=== PATIENT | male | born 1985 | race Caucasian/White ===

== ENCOUNTER → 2019-11-27 07:02 | Outpatient (CLI) | payer OTHER, SELFPAY ==
--- NOTE | 2019-11-27 | DI.ECHO.S_ITS ---
[place] [facility] +---------+ : : [address] : : : : [id number] : : : : Phone: [phone] Echocardiogram Report + + :Name: ANA MARÍA HOLDEN Study Date: 11/27/2019 Height: 71 in : :[facility] Weight: 161 lb : : Gender: Male BSA: 1.9 m2 : :: 1985 Age: 34 yrs BP: 108/74 mmHg: :Reason For Study: Aortic insufficiency : :Ordering Physician: Melissa Soliman : :Grace Performed By: Jen Mustafa : :Referring: MELISSA EDWARDS : + + Interpretation Summary 1) Upper normal left ventricular size with normal thickness, and normal systolic function (EF 55-60%). 2) Normal right ventricular size and function. There is a pacemaker lead in the right ventricle. 3) The aortic valve is bicuspid. 4) There is mild aortic stenosis. 5) There is mild-moderate aortic regurgitation, directed towards the anterior leaflet of the mitral valves. 6) The aortic root is mildly dilated at 4.1cm. 7) No prior Echo available for comparison. Procedure: A two-dimensional transthoracic echocardiogram with color flow and Doppler was performed. The study quality was technically adequate. There is no prior echocardiogram noted for this patient. The patient was in sinus bradycardia with heart rates between 51-72 bpm during the exam. Left Ventricle: There is normal left ventricular wall thickness. Left ventricular size is at the upper limits of normal. The ejection fraction is estimated to be 55-60%. There is a slight dyssynchronous contraction pattern due to the paced rhythm. Right Ventricle: There is a pacemaker lead in the right ventricle. The right ventricle is grossly normal size. The right ventricular systolic function is normal. Atria: The left atrium is mildly dilated. There is a catheter/pacemaker lead seen in the right atrium. The right atrium is borderline dilated. There is no Doppler evidence for an interatrial shunt. 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 Mitral Valve: The mitral valve is normal in structure and function. There is trace mitral regurgitation. Aortic Valve: The aortic valve is bicuspid. There is moderate aortic valve sclerosis. There is mild aortic stenosis. There is mild to moderate aortic regurgitation. There is an eccentric jet of aortic insufficiency directed against the anterior mitral leaflet. Tricuspid Valve: The tricuspid valve is normal in structure and function. There is mild tricuspid regurgitation. The right ventricular systolic pressure is estimated to be at least 20 mmHg based on an estimated right atrial pressure of 3 mm Hg. Pulmonic Valve: The pulmonic valve is normal in structure and function. There is mild pulmonic regurgitation. Great Vessels: The aortic root is mildly dilated. The ascending aorta is at the upper limits of normal in size. The IVC is of normal diameter and collapses greater than 50% with a sniff. This suggests a low right atrial pressure of 3 mm Hg. Pericardium/ Pleura There is no pericardial effusion. There is no pleural effusion. MMode/2D Measurements & Calculations LVIDd: 5.9 cm Ao root diam: 4.1 cm LVIDs: 4.3 cm asc Aorta Diam: 3.6 cm FS: 27.5 % Ao Arch Diam (Prox Trans): 2.5 cm EPSS: 1.3 cm IVSd: 0.89 cm LVPWd: 0.96 cm LV cheng. diameter/BSA (cm/m^2): 3.1 LV sys. diameter/BSA (cm/m^2): 2.2 LA A2 area: 22.1 cm2 RA long axis: 5.3 cm LA A4 area: 20.3 cm2 RA area: 18.3 cm2 LA length (vol): 5.0 cm RA vol: 53.4 ml LA vol: 76.0 ml RA : 27.7 ml/m2 LA vol index: 39.5 ml/m2 IVC diam: 2.0 cm RVD1 (basal): 3.9 cm TAPSE: 3.1 cm Doppler Measurements & Calculations Ao V2 max: 224.1 cm/sec LVOT Max Ricky: 84.2 cm/sec Ao V2 mean: 161.3 cm/sec LV V1 max P.8 mmHg Ao max P.1 mmHg LV V1 VTI: 21.6 cm Ao mean P.8 mmHg sev ratio: 0.41 Ao V2 VTI: 52.8 cm MV E max ricky: 83.7 cm/sec TR max ricky: 206.9 cm/sec MV A max ricky: 46.5 cm/sec TR max P.1 mmHg MV E/A: 1.8 PA V2 max: 70.1 cm/sec Med Peak E' Ricky: 7.2 cm/sec PA V2 mean: 48.0 cm/sec E/E' med: 11.7 PA mean P.1 mmHg Lat Peak E' Ricky: 12.4 cm/sec PA pr(Accel): 15.2 mmHg E/E' lat: 6.7 PA Accel Time: 0.15 sec E/e' average: 9.2 MV dec time: 0.15 sec Reading Physician:09:27 AM
== END ==
PROVIDERS: Referring Provider Internal Medicine Cardiovascular Disease; Visit Provider Internal Medicine Cardiovascular Disease
DX: I08.2 Rheumatic disorders of both aortic and tricuspid valves (principal); I77.810 Thoracic aortic ectasia; Z95.0 Presence of cardiac pacemaker
CPT/HCPCS: 93306

== ENCOUNTER 2020-07-12 12:56 | Emergency (ER) | payer OTHER, SELFPAY ==
[2020-07-12] VITALS (7 sets, daily range): BP systolic 106–129; BP diastolic 56–75; PULSE 51–94; RESP 18–23; O2SAT 95–99; BMI 22.3
--- NOTE | 2020-07-12 13:08 | DI.RAD.S_ITS ---
PROCEDURE: XR ACUTE ABDOMEN SERIES INDICATIONS: abd pain, vomiting TECHNIQUE: One view chest and two views of the abdomen were acquired. COMPARISON: None. FINDINGS: Clothing artifact is seen. Surgical changes and devices: A pacer device is seen. Chest: Lungs are clear. Heart size is normal. No pleural effusions. No pneumoperitoneum. Abdomen: Bowel gas pattern is normal. No suspicious calcifications. Visualized solid organ contours appear normal. A moderate amount of stool is seen within the colon. Bones: No suspicious bony lesions. IMPRESSION: A nonobstructive bowel gas pattern is seen. If clinically appropriate, please consider a repeat plain film study or a dedicated CT of the abdomen and pelvis, if the patient's symptoms persist or worsen. There is a moderate amount of stool seen within the colon. Please correlate with an underlying history of constipation. Pacer device noted. Dictated by: Tito Junior M.D. on 07/12/2020 at 12:24 Approved by: Tito Junior M.D. on 07/12/2020 at 12:25
--- NOTE | 2020-07-12 13:14 | ED_ITS ---
HPI - Nausea/Vomiting/Diarrhea <KONSTANTIN DickensBC - Last Filed: 07/12/20 17:19> General Chief complaint: Nausea/Vomiting/Diarrhea Stated complaint: Possible Food Poisoning Time Seen by Provider: 07/12/20 13:00 Source: patient Mode of arrival: Ambulatory Limitations: no limitations History of Present Illness HPI Narrative: The patient is a 35-year-old male nonsmoker with history of of p acemaker, SVT who presents with a chief complaint of nausea and vomiting since last night. He has on a road biking anniversary trip with his , was eating out in [place], and both he and his had severe nausea and vomiting. He states he had fish and chips, but she has plate half a bottle of wine and some she hand pain. He has vomited at least 4 times, his feels improved it is able to keep down oral intake, but he is unable to do so at this time. He took his road bike on the [place] and bike to the hospital, presenting with a chief complaint of likely food poisoning. He denies any fevers muscle aches or chills. He denies any constipation or diarrhea, though feels he might feel better if that were to happen. He has not taken anything to feel better. He states he vomited up a piece of donut this morning. Denies any major medical history other than his history of SVT, which resulted in multiple ablations of medications sick sinus syndrome and then a pacemaker implantation. Related Data Previous Rx's Medication Instructions Recorded ondansetron 4 mg PO Q6H PRN #14 tab 07/12/20 Allergies Allergy/AdvReac Type Severity Reaction Status Date / Time No Known Drug Allergies Allergy Verified 07/12/20 13:13 Review of Systems <TRU Dickens - Last Filed: 07/12/20 17:19> Review of Systems Narrative: GENERAL: Denies chills, fatigue, malaise, fever, sweats. HEENT: Denies sinus pain, ear pain, sore throat, difficulty swallowing, dizziness. RESPIRATORY: Denies dyspnea, cough, wheezing, hemoptysis, sputum. CARDIOVASCULAR: Denies chest pain, palpitations, orthopnea, edema, GASTROINTESTINAL: See HPI : Denies dysuria, frequency, incontinence, hematuria, urinary retention. MUSCULOSKELETAL: denies weakness, joint pain, or bony pain SKIN: Denies rash, skin lesions, or other NEUROLOGIC: Denies weakness, headache, numbness, change in speech, confusion, seizures, incoordination. PSYCHIATRIC: No concerning psychosocial issues. 12 point review of systems is negative except for those stated above Patient History <TRU Dickens - Last Filed: 07/12/20 17:19> Medical History (Updated 07/12/20 @ 16:35 by TRU Dickens) Pacemaker (Acute) Social History Smoking Status: Never smoker Smoking Status: Never smoker alcohol intake frequency: 0-2 drinks per day Substance Use Type: does not use Exam <TRU Dickens - Last Filed: 07/12/20 17:19> Narrative Exam Narrative: GENERAL: This is a well-nourished, well-developed patient, in no acute distress HEAD: Atraumatic. Normocephalic. No temporal or scalp tenderness. EYES: Pupils equal round and reactive. Extraocular motions intact. No scleral icterus. No injection or drainage. ENT: Nose without bleeding, purulent drainage or septal hematoma. Throat without erythema, tonsillar hypertrophy or exudate. Uvula midline. Airway patent. NECK: Trachea midline. No JVD or lymphadenopathy. Supple, nontender, no meningeal signs. CARDIOVASCULAR: Regular rate and rhythm RESPIRATORY: Clear to auscultation. Breath sounds equal bilaterally. No wheezes, rales, or rhonchi. Cough. No increased respiratory effort. No accessory muscle use. GASTROINTESTINAL: Abdomen soft, diffusely tender to palpation, nondistended. No hepato-splenomegaly, or palpable masses. No guarding. EXTREMITIES: No clubbing, cyanosis, or edema. No joint tenderness, effusion, or edema noted. BACK: Nontender without deformity or crepitance. No flank tenderness. NEURO: AOx3. SKIN: No rash or erythema on visible skin Initial Vital Signs Initial Vital Signs: Vital Signs Pulse Rate 94 H 07/12/20 13:08 Respiratory Rate 18 07/12/20 13:08 Blood Pressure 129/75 07/12/20 13:08 Pulse Oximetry 96 07/12/20 13:08 <Radha Saha DO - Last Filed: 07/17/20 07:42> Initial Vital Signs Initial Vital Signs: Vital Signs Pulse Rate 94 H 10/18/20 13:08 Respiratory Rate 18 07/12/20 13:08 Blood Pressure 129/75 07/12/20 13:08 Pulse Oximetry 96 07/12/20 13:08 Scores <TRU Dickens - Last Filed: 07/12/20 17:19> GCS [place] coma scale eye opening: Spontaneous [place] coma scale verbal response: Orientated [place] coma scale motor response: Obey commands [place] coma scale total score: 15 Course <TRU Dickens - Last Filed: 07/12/20 17:19> Orders Ordered: Discontinued Medications Sodium Chloride (Normal Saline 0.9%) 1,000 mls @ 1,000 mls/hr IV BOLUS ONE Stop: 07/12/20 14:07 Last Infusion: 07/12/20 14:25 Dose: 0 mls/hr Documented by: Admin: 07/12/20 13:27 Dose: 1,000 mls/hr Documented by: JOHANNA Sodium Chloride (Normal Saline 0.9%) 1,000 mls @ 1,000 mls/hr IV BOLUS ONE Stop: 07/12/20 15:24 Last Infusion: 07/12/20 15:30 Dose: 1,000 mls/hr Documented by: Admin: 07/12/20 14:29 Dose: 1,000 mls/hr Documented by: JOHANNA Magnesium Oxide (Mag Ox) 400 mg PO NOW ONE Stop: 07/12/20 16:34 Last Admin: 07/12/20 16:47 Dose: 400 mg Documented by: EMANI Ondansetron HCl (Zofran) 4 mg IV NOW ONE Stop: 07/12/20 13:09 Last Admin: 07/12/20 13:27 Dose: 4 mg Documented by: JOHANNA Ondansetron HCl (Zofran) 4 mg IV NOW ONE Stop: 07/12/20 15:42 Last Admin: 07/12/20 15:47 Dose: 4 mg Documented by: EMANI Ondansetron HCl (Zofran Odt Prepack) 1 bottle MISC SEEINSTR ONE Stop: 07/12/20 16:49 Last Admin: 07/12/20 16:57 Dose: 1 bottle Documented by: EMANI Vital Signs Vital signs: Vital Signs - 8 hr 07/12/20 13:08 07/12/20 13:30 07/12/20 14:00 Pulse Rate 94 H 62 51 L Respiratory Rate 18 21 23 Blood Pressure 129/75 117/60 106/56 L Pulse Oximetry 96 95 98 07/12/20 14:27 07/12/20 14:30 07/12/20 15:00 Pulse Rate 66 64 Respiratory Rate 18 Blood Pressure 112/59 L 113/56 L Pulse Oximetry 99 99 07/12/20 16:57 Pulse Rate 71 Respiratory Rate 18 Blood Pressure 108/60 Pulse Oximetry 99 <Radha Saha, DO - Last Filed: 07/17/20 07:42> Orders Ordered: Discontinued Medications Sodium Chloride (Normal Saline 0.9%) 1,000 mls @ 1,000 mls/hr IV BOLUS ONE Stop: 07/12/20 14:07 Last Infusion: 07/12/20 14:25 Dose: 0 mls/hr Documented by: Admin: 07/12/20 13:27 Dose: 1,000 mls/hr Documented by: JOHANNA Sodium Chloride (Normal Saline 0.9%) 1,000 mls @ 1,000 mls/hr IV BOLUS ONE Stop: 07/12/20 15:24 Last Infusion: 07/12/20 15:30 Dose: 1,000 mls/hr Documented by: Admin: 07/12/20 14:29 Dose: 1,000 mls/hr Documented by: JOHANNA Magnesium Oxide (Mag Ox) 400 mg PO NOW ONE Stop: 07/12/20 16:34 Last Admin: 07/12/20 16:47 Dose: 400 mg Documented by: EMANI Ondansetron HCl (Zofran) 4 mg IV NOW ONE Stop: 07/12/20 13:09 Last Admin: 07/12/20 13:27 Dose: 4 mg Documented by: JOHANNA Ondansetron HCl (Zofran) 4 mg IV NOW ONE Stop: 07/12/20 15:42 Last Admin: 07/12/20 15:47 Dose: 4 mg Documented by: EMANI Ondansetron HCl (Zofran Odt Prepack) 1 bottle MISC SEEINSTR ONE Stop: 07/12/20 16:49 Last Admin: 07/12/20 16:57 Dose: 1 bottle Documented by: EMANI Vital Signs Vital signs: Vital Signs - 8 hr 07/12/20 13:08 07/12/20 13:30 07/12/20 14:00 Pulse Rate 94 H 62 51 L Respiratory Rate 18 21 23 Blood Pressure 129/75 117/60 106/56 L Pulse Oximetry 96 95 98 07/12/20 14:27 07/12/20 14:30 07/12/20 15:00 Pulse Rate 66 64 Respiratory Rate 18 Blood Pressure 112/59 L 113/56 L Pulse Oximetry 99 99 07/12/20 16:57 Pulse Rate 71 Respiratory Rate 18 Blood Pressure 108/60 Pulse Oximetry 99 MDM - Nausea/Vomiting/Diarrhea <MERRY Dickens- - Last Filed: 07/12/20 17:19> Lab Data Attestation: I reviewed the patient's lab results. Result diagrams: 07/12/20 13:28 07/12/20 13:28 Labs: Lab Results 07/12/20 07/12/20 Range/Units 13:28 13:28 WBC 10.1 (4.5-11.0) X10^3/uL RBC 4.79 (4.5-5.9) X10^6/uL Hgb 15.2 (13.5-17.5) g/dL Hct 43.5 (41-53) % MCV 90.9 (80-100) fL MCH 31.8 (26-34) PG MCHC 35.0 (30-36) % RDW 13.1 (11.6-14.8) % Plt Count 139 L (150-400) X10^3/uL Neut % (Auto) 89.6 H (50-75) % Lymph % (Auto) 4.1 L (25-40) % [place] % (Auto) 6.0 (3-14) % Eos % (Auto) 0.1 L (2-4) % Baso % (Auto) 0.2 (0-2) % Neut # (Auto) 9100 H (4807-1673) /uL Lymph # (Auto) 400 L (8212-6124) /uL [place] # (Auto) 600 (0-900) /uL Eos # (Auto) 0 (0-450) /uL Baso # (Auto) 0 (0-100) /uL Sodium 138 (137-145) mmol/L Potassium 4.5 (3.4-5.1) mmol/L Chloride 104 (98-107) mmol/L Carbon Dioxide 24 (22-32) mmol/L BUN 20 (9-20) mg/dL Creatinine 0.83 (0.66-1.25) mg/dL Estimated GFR > 60.0 (>60) mL/min BUN/Creatinine Ratio 24.1 H (6-22) Glucose 121 H (70-100) mg/dL Calcium 9.1 (8.4-10.2) mg/dL Magnesium 1.5 L (1.6-2.3) mg/dL Total Bilirubin 1.1 (0.2-1.3) mg/dL AST 36 (17-59) IU/L ALT 17 (<50) IU/L Alkaline Phosphatase 62 (38-126) U/L Total Protein 8.5 H (6.3-8.2) g/dL Albumin 4.6 (3.5-5.0) g/dL Globulin 3.9 (1.7-4.1) g/dL Albumin/Globulin Ratio 1.2 (1.0-2.8) Amylase 110 (30-110) U/L Lipase 147 (23-300) U/L Urine Dip Bedside Urine Glucose Negative Bedside Urine Bilirubin + 1 Bedside Urine Ketone + 15 Urine Specific [place] 1.030 Bedside Urine Occult Blood - Negative Bedside Urine pH 5.5 Bedside Urine Protein - Negative Bedside Urine Urobilinogen - Negative Bedside Urine Nitrite - Negative Bedside Urine Leukocytes - Negative Esterase Imaging Data Abdominal x-ray: Radiologist's Impression: [address] [place] [id number] XRay Report Signed Patient: Jose Gonzalez JMR#: [id number] : 1985Acct:[id number] Age/Sex: 35 / MDate of Service: 07/12/20 Loc: ED Accession Number: [id number] Procedure: XR acute abdomen series Ordering Provider: Michelle Clemens-BC PROCEDURE: XR ACUTE ABDOMEN SERIES INDICATIONS: abd pain, vomiting TECHNIQUE: One view chest and two views of the abdomen were acquired. COMPARISON: None. FINDINGS: Clothing artifact is seen. Surgical changes and devices: A pacer device is seen. Chest: Lungs are clear. Heart size is normal. No pleural effusions. No pneumoperitoneum. Abdomen: Bowel gas pattern is normal. No suspicious calcifications. Visualized solid organ contours appear normal. A moderate amount of stool is seen within the colon. Bones: No suspicious bony lesions. IMPRESSION: A nonobstructive bowel gas pattern is seen. If clinically appropriate, please consider a repeat plain film study or a dedicated CT of the abdomen and pelvis, if the patient's symptoms persist or worsen. There is a moderate amount of stool seen within the colon. Please correlate with an underlying history of constipation. Pacer device noted. Dictated by: Tito Junior M.D. on 07/12/2020 at 12:24 Approved by: Tito Junior M.D. on 07/12/2020 at 12:25 MDM Narrative Medical decision making narrative: The patient is a 35-year-old male who presents with a chief complaint of nausea and vomiting since eating dinner last night. He appears overall well and nontoxic, lab work is reassuring with no leukocytosis. He feels improved after IV fluids as well as Zofran is requesting to go home. I discussed at length that we did not do further advanced imaging and he is okay with that at this point time. Is able to pass a p.o. trial. I discussed at length strict return precautions for abdominal pain with fever any acute concerns etcetera. We discussed that we did not do CT etcetera to rule out appendicitis or other acute etiology however this is thought to be less likely as the patient's came down with similar symptoms immediately after eating as well. Encouraged follow-up with primary care provider, sent in a prescription of Zofran provided a work note. Patient had no episodes of vomiting throughout his emergency department stay. Patient have no questions or concerns upon discharge and state understanding of return precautions as well as follow-up care. <Radha Saha, - Last Filed: 07/17/20 07:42> Lab Data Labs: Lab Results 07/12/20 07/12/20 Range/Units 13:28 13:28 WBC 10.1 (4.5-11.0) X10^3/uL RBC 4.79 (4.5-5.9) X10^6/uL Hgb 15.2 (13.5-17.5) g/dL Hct 43.5 (41-53) % MCV 90.9 (80-100) fL MCH 31.8 (26-34) PG MCHC 35.0 (30-36) % RDW 13.1 (11.6-14.8) % Plt Count 139 L (150-400) X10^3/uL Neut % (Auto) 89.6 H (50-75) % Lymph % (Auto) 4.1 L (25-40) % [place] % (Auto) 6.0 (3-14) % Eos % (Auto) 0.1 L (2-4) % Baso % (Auto) 0.2 (0-2) % Neut # (Auto) 9100 H (6321-8742) /uL Lymph # (Auto) 400 L (7278-9008) /uL [place] # (Auto) 600 (0-900) /uL Eos # (Auto) 0 (0-450) /uL Baso # (Auto) 0 (0-100) /uL Sodium 138 (137-145) mmol/L Potassium 4.5 (3.4-5.1) mmol/L Chloride 104 (98-107) mmol/L Carbon Dioxide 24 (22-32) mmol/L BUN 20 (9-20) mg/dL Creatinine 0.83 (0.66-1.25) mg/dL Estimated GFR > 60.0 (>60) mL/min BUN/Creatinine Ratio 24.1 H (6-22) Glucose 121 H (70-100) mg/dL Calcium 9.1 (8.4-10.2) mg/dL Magnesium 1.5 L (1.6-2.3) mg/dL Total Bilirubin 1.1 (0.2-1.3) mg/dL AST 36 (17-59) IU/L ALT 17 (<50) IU/L Alkaline Phosphatase 62 (38-126) U/L Total Protein 8.5 H (6.3-8.2) g/dL Albumin 4.6 (3.5-5.0) g/dL Globulin 3.9 (1.7-4.1) g/dL Albumin/Globulin Ratio 1.2 (1.0-2.8) Amylase 110 (30-110) U/L Lipase 147 (23-300) U/L Urine Dip Bedside Urine Glucose Negative Bedside Urine Bilirubin + 1 Bedside Urine Ketone + 15 Urine Specific [place] 1.030 Bedside Urine Occult Blood - Negative Bedside Urine pH 5.5 Bedside Urine Protein - Negative Bedside Urine Urobilinogen - Negative Bedside Urine Nitrite - Negative Bedside Urine Leukocytes - Negative Esterase Discharge Plan Departure Patient Disposition: Home Clinical Impression: Hypomagnesemia, Dehydration Nausea & vomiting Qualifiers: Vomiting type: unspecified Vomiting Intractability: non-intractable Qualified Code(s): R11.2 - Nausea with vomiting, unspecified Abdominal pain Qualifiers: Abdominal location: generalized Qualified Code(s): R10.84 - Generalized abdominal pain Discharge Date/Time: 07/12/20 16:58 Instructions: DI for Dehydration -- Adult, DI for Abdominal Pain-Adult, DI for Nausea -- Adult, DI for Vomiting -- Adult Activity Restrictions/Additional Instructions: Thank you for trusting us with your care today Discussed, please follow-up with primary care provider in the next few days. I sent a prescription of Zofran to [email or web address] in [place]. Please be aware that this can be constipating. Your magnesium is slightly low today. We have given you a pill to help replace this. It is likely due to your vomiting. Please follow-up with primary care provider at the next few days for re-evaluation regarding this. As discussed, given that you had similar symptoms after eating suspect food, you any do not have any fever or cough this is not likely to be coronavirus at this point time. However we did not test you for coronavirus today. As discussed, please start with a light diet pushing fluids. Please avoid deep fried foods, spicy foods fatty foods etcetera as these can all be irritating to your stomach. As discussed, please come back to the emergency department for any acute concerns including abdominal pain with fever etcetera. Prescriptions: New ondansetron 4 mg tablet,disintegrating 4 mg PO Q6H PRN (Reason: nausea and vomiting) Qty: 14 RF: 0 Referrals: [facility] [Provider Group] Blake Lange MD [Primary Care Provider] - Stand Alone Forms: Work Release Note <Radah Saha DO - Last Filed: 07/17/20 07:42> Cosign ED Attending Cos[place] Attestation: I was immediately available in the department for consultation. Documentation has been reviewed. I agree with assessment and plan.
[2020-07-12] MEDS: SODIUM CHLORIDE 0.9% 1,000 ML 1000 ML IV ×2 (13:27→14:29)
[2020-07-12] MEDS: ONDANSETRON 4 MG/2 ML INJ IV ×2 (13:27→15:47)
[2020-07-12 13:31] LABS: Add Manual Diff / Slide Review NO; Basophils Absolute Auto 0 /uL (0-100); Basophils Percent Auto 0.2 % (0-2); Eosinophils Absolute Auto 0 /uL (0-450); Eosinophils Percent Auto 0.1 % (2-4); Hematocrit 43.5 % (41-53); Hemoglobin 15.2 g/dL (13.5-17.5); Lymphocytes Absolute Auto 400 /uL (1100-4500); Lymphocytes Percent Auto 4.1 % (25-40); Mean Corpuscular Hemoglobin 31.8 PG (26-34); Mean Corpuscular Volume 90.9 fL (80-100); Monocytes Absolute Auto 600 /uL (0-900); Neutrophils Absolute Auto 9100 /uL (1500-7000); Neutrophils Percent Auto 89.6 % (50-75); Platelet Count 139 X10^3/uL (150-400); Red Blood Cell Count 4.79 X10^6/uL (4.5-5.9); Red Cell Distribution Width 13.1 % (11.6-14.8); White Blood Cell Count 10.1 X10^3/uL (4.5-11.0)
[2020-07-12 13:40] LABS: Alanine Aminotransferase 17 IU/L (<50); Albumin 4.6 g/dL (3.5-5.0); Albumin Globulin Ratio 1.2 (1.0-2.8); Alkaline Phosphatase 62 U/L (38-126); Amylase 110 U/L (30-110); Aspartate Aminotransferase 36 IU/L (17-59); BUN Creatinine Ratio 24.1 (6-22); Bilirubin Total 1.1 mg/dL (0.2-1.3); Blood Urea Nitrogen 20 mg/dL (9-20); Calcium 9.1 mg/dL (8.4-10.2); Carbon Dioxide 24 mmol/L (22-32); Chloride 104 mmol/L (98-107); Estimated Glomerular Filt Rate > 60.0 mL/min (>60); Globulin 3.9 g/dL (1.7-4.1); Glucose 121 mg/dL (70-100); HEMOLYSIS 34 (0-50); Lipase 147 U/L (23-300); Magnesium 1.5 mg/dL (1.6-2.3); Potassium 4.5 mmol/L (3.4-5.1); Sodium 138 mmol/L (137-145); Total Protein 8.5 g/dL (6.3-8.2)
[2020-07-12] MEDS: MAGNESIUM OXIDE 400 MG TABLET PO (16:47)
[2020-07-12] MEDS: ONDANSETRON 4 MG ODT PREPACK 1 BOTTLE MISC (16:57)
== END 2020-07-12 16:58 | disposition home or self-care (01) ==
PROVIDERS: Emergency Provider Nurse Practitioner Family; PCP Obstetrics & Gynecology
DX: E83.42 Hypomagnesemia (principal); E86.0 Dehydration; R11.2 Nausea with vomiting, unspecified; R10.84 Generalized abdominal pain; Z95.0 Presence of cardiac pacemaker
CPT/HCPCS: 36415; 74022; 80053; 81003; 82150; 83690; 83735; 85025; 93005; 93010; 96361; 96374; 96376; 99284; J2405

== ENCOUNTER → 2022-02-09 15:55 | Outpatient (CLI) | payer OTHER, SELFPAY ==
--- NOTE | 2022-02-09 15:57 | DI.ECHO.S_ITS ---
[facility] +---------+ : : [address] : [place] : : : : [id number] : : : : Phone: [phone] +---------+ Echocardiogram Report + + :Name: ANA MARÍA HOLDEN Study Date: 02/09/2022 Height: 71 in : :[facility] ReadingLocation: Weight: 159 lb : : Gender: Male BSA: 1.9 m2 : :: 1985 Age: 36 yrs BP: 113/78 mmHg: :Reason For Study: CARDIOMYOPATHY : :Ordering Physician: LACEY, : :MELISSA Performed By: Jen Mustafa : :Referring: MELISSA EDWARDS : + + Interpretation Summary 1) Moderately enlarged left ventricle with normal thickness, and borderline reduced systolic function (EF about 50%). 2) The right ventricle is mild to moderately dilated and has normal systolic function. There is a pacemaker lead in the right ventricle. 3) The aortic valve is bicuspid. 4) There is mild aortic stenosis (valve area 2.1cm2, mean gradient 16mmHg, severity ratio 0.3). 5) There is mild-moderate aortic regurgitation, directed towards the anterior leaflet of the mitral valves. 6) The aortic root is mildly dilated at 3.8cm. 7) Compared to the Echo done 08/10/2021, LVEF has increased from 45-50% to about 50% on this study. Procedure: A two-dimensional transthoracic echocardiogram with color flow and Doppler was performed. The study quality was technically adequate. Comparison is made with the echocardiogram of 08/10/2021. The patient has a paced rhythm. The heart rate ranged between 50-61 bpm during the study. Left Ventricle: The left ventricle is moderately dilated. There is normal left ventricular wall thickness. Left ventricular ejection fraction is estimated to be 50 +/- 5%. Left ventricular systolic function is borderline reduced. There are no focal wall motion abnormalities. Right Ventricle: There is a pacemaker lead in the right ventricle. The right ventricle is moderately dilated. The right ventricular systolic function is normal. Atria: The left atrium is mildly dilated. Right atrial size is normal. There is a catheter/pacemaker lead seen in the right atrium. The atrial septum is aneurysmal. Mitral Valve: The mitral valve is normal in structure and function. There is trace mitral regurgitation. Aortic Valve: The aortic valve is bicuspid. The aortic valve is mildly calcified. There is mild aortic stenosis. The peak aortic velocity is 2.6 m/sec. The aortic valve mean gradient is 15 mmHg. The calculated aortic valve area is 1.8 cm2. There is mild to moderate aortic regurgitation. Tricuspid Valve: The tricuspid valve is normal in structure and function. There is mild tricuspid regurgitation. The right ventricular systolic pressure is estimated to be at least 16 mmHg based on an estimated right atrial pressure of 3 mm Hg. Pulmonic Valve: The pulmonic valve leaflets are thin and pliable; valve motion is normal. There is mild pulmonic regurgitation. Great Vessels: The aortic root is normal size. The ascending aorta is normal in size. The IVC is of normal diameter and collapses greater than 50% with a sniff. This suggests a low right atrial pressure of 3 mm Hg. Pericardium/ Pleura There is no pericardial effusion. There is no pleural effusion. MMode/2D Measurements & Calculations LVIDd: 6.2 cm LVOT diam: 3.0 cm LVIDs: 4.5 cm Ao root diam: 3.8 cm FS: 26.4 % asc Aorta Diam: 3.7 cm IVSd: 0.90 cm Ao Arch Diam (Prox Trans): 2.7 cm LVPWd: 0.84 cm LV cheng. diameter/BSA (cm/m^2): 3.2 LV sys. diameter/BSA (cm/m^2): 2.4 LA A2 area: 24.3 cm2 RA long axis: 4.8 cm LA A4 area: 18.9 cm2 RA area: 15.1 cm2 LA length (vol): 5.1 cm RA vol: 40.4 ml LA vol: 76.2 ml RA : 21.1 ml/m2 LA vol index: 39.9 ml/m2 IVC diam: 1.0 cm RVD1 (basal): 5.4 cm RVD2 (mid): 4.6 cm TAPSE: 2.7 cm Doppler Measurements & Calculations Ao V2 max: 259.7 cm/sec LVOT Max Ricky: 67.6 cm/sec Ao V2 mean: 169.5 cm/sec LV V1 max P.8 mmHg Ao max P.1 mmHg LV V1 VTI: 15.8 cm Ao mean P.0 mmHg SOLMOON(I,D): 2.1 cm2 Ao V2 VTI: 52.9 cm SOLOMON(V,D): 1.8 cm2 sev ratio: 0.30 SOLOMON indexed to BSA (cm^2/m^2): 1.1 MV E max ricky: 62.0 cm/sec TR max ricky: 178.2 cm/sec MV A max ricky: 28.5 cm/sec TR max P.7 mmHg MV E/A: 2.2 PA V2 max: 63.7 cm/sec Med Peak E' Ricky: 7.8 cm/sec PA V2 mean: 49.4 cm/sec E/E' med: 8.0 PA mean P.1 mmHg Lat Peak E' Ricky: 10.9 cm/sec PA pr(Accel): 3.6 mmHg E/E' lat: 5.7 E/e' average: 6.8 MV dec time: 0.27 sec SV(LVOT): 112.2 ml Reading Physician:07:07 PM
== END ==
PROVIDERS: PCP Obstetrics & Gynecology; Referring Provider Internal Medicine Cardiovascular Disease; Visit Provider Internal Medicine Cardiovascular Disease
DX: Q23.1 Congenital insufficiency of aortic valve (principal); I42.9 Cardiomyopathy, unspecified; Z95.0 Presence of cardiac pacemaker
CPT/HCPCS: 93306